=== PATIENT | male | born 1995 | race Caucasian/White ===

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

== ENCOUNTER 2017-01-07 21:40 | Emergency (ER) | payer OTHER ==
[~2017-01-07] VITALS: Ht 185.4 cm; Wt 81.6 kg
[~2017-01-07 21:40] MED LIST: CLIN150C14 PO; LIDO2SO SSP; MELO15TA4 PO; PENI250T57 PO; TIZA4CAP3 PO; TYLE325T5 PO; penicillin
[2017-01-07 21:41] VITALS: BP 148/73
[2017-01-08] MEDS ORDERED: DERMABOND TOPICAL SKIN ADHESIVE TOP ONE (01:00)
== END 2017-01-08 01:12 | disposition home or self-care (01) ==
LOC: M ED 21:40
DX: S61.211A Laceration without foreign body of left index finger without damage to nail, initial encounter (principal); W26.0XXA Contact with knife, initial encounter; Y92.018 Other place in single-family (private) house as the place of occurrence of the external cause; Y93.89 Activity, other specified; Y99.8 Other external cause status; M54.2 Cervicalgia; F17.210 Nicotine dependence, cigarettes, uncomplicated